=== PATIENT | male | born 1975 | race Caucasian/White ===

== ENCOUNTER 2017-01-30 12:00 | Emergency (ER) | payer MEDICARE ==
[~2017-01-30] VITALS: Ht 180.3 cm; Wt 81.8 kg
[2017-01-30 12:12] VITALS: BP 147/100; PULSE 101; RESP 16; O2SAT 95
--- NOTE | 2017-01-30 13:33 | ED.REPORT ---
HPI-Psychiatric Illness Date of Service Jan 30, 2017 ED Provider: Courtney Dakota Patient is a 41 year old male who presents to the ED from [place] complaining of hopelessness due to being homeless and not being able to find a place to live. He denies suicidal ideation but reports that he went to the doctor and asked to be "put down". Patient reports auditory hallucinations that told him that if he went to a particular building, they would clear drunk driving charges and visual hallucinations in the form of cartoon characters. He denies homicidal ideation or any other symptoms at this time. He reports using alcohol and smoking. He last drank 3 days ago. Patient also reports doing Crystal one month ago. Patient has a nurse practitioner that prescribes him Zyprexa. Nursing Notes Stated Complaint: PSYCH EVAL Chief Complaint: General Complaint Nursing Notes Reviewed: Yes Allergies: Coded Allergies: Penicillins (Verified Allergy, Intermediate, 01/30/17) General Time Seen by MD: 13:32 Chief Complaint Other (Hopelessness ) Hx Obtained From: Patient Arrived By: Walk-in Onset Occurred: Onset unknown Immunizations: Unknown Risk-Psychiatric Illness Suicide Risk Stratification Suicide Risk Factors - Adult: : Alcohol use: Substance abuse RF Statements: Risk factors reviewed Past Medical History Past Medical History bursitis Past Surgical History None reported Smoking History Current Every Day Smoker Social History Alcohol Use: "Social" Drug Use: Meth Other Social History: Homeless Ambulatory Status Independent Review of Systems Review of Systems Note: +hopelessness Constitutional: Denies: Chills, Fever GI: Denies: Abdominal pain, Diarrhea, Vomiting Skin: Denies Rash Psychiatric: Reports: Hallucinations, auditory, Hallucinations, visual, Denies: Homicidal ideation, Suicidal ideation Complete sys rev & neg: except as marked. Physical Exam Initial Vital Signs Vital Signs (First) Date Time Temp Pulse Resp B/P Pulse Ox O2 Delivery O2 Flow Rate FiO2 01/30/17 12:12 36.4 101 16 147/100 95 Room Air Initial VS: Reviewed, Vital signs abnormal Head / Eyes: Atraumatic, Normocephalic Neck: Full range of motion Respiratory: No respiratory distress Cardiovascular: Regular rate & rhythm, Heart sounds normal, Intact distal pulses Abdomen / GI: Soft, Non-tender Skin: Warm, Dry General/Constitutional: Awake, Alert, No acute distress Neurologic: Oriented X3, Speech NL Psychiatric: Not suicidal, Not homicidal Abnormal Thinking / Perception: Positive: Hallucinations, auditory, Hallucinations, visual Odd affect Re-Eval/Medical Decision Med Decision/Clinical Course Patient has a very odd affect and poor insight and judgment however after discussion with the patient, he does not seem to be at imminent risk of harm to himself or others. He is generally tangential than disorganized. Discuss with social work, a transitional home is found for the patient and he will be sent directly there. Turn and follow-up precautions given Re-Evaluation/Progress : Time of Eval: 14:36 )( Re-Eval Psychiatric: No danger to others Re-Evaluation/Progress Note: Discussed plan for discharge. Patient understands and agrees with plan. All questions addressed at this time. Consultation #1: Consulted With: curing room worker Call Returned at: 13:44 Bowling Ball Grader: Will see patient Note: Social work will see pt. Consultation #2: Consulted With: curing room worker Call Returned at: 14:23 Bowling Ball Grader: Agrees with eval, Agrees with plan Note: Provided pt with resources. pt is safe to D/C Counseled Regarding: Diagnosis, Need for follow-up, When/why to return to ED Discharge & Departure Impression: Primary Impression: Homeless )( Condition at Discharge: No danger to self, No danger to others Disposition: Home Discharge Condition All VS Reviewed: Yes Condition: Stable Additional Instructions: Use the resources provided by the social human services assistants and go directly to the prison. The emergency department is always available for any physical or psychiatric emergencies. Referrals: [facility] (PCP) Corey Attestation Portions of this note were transcribed by Dayan Jacobs. I, Dr. Valdez personally performed the history, physical exam and medical decision-making; I reviewed and confirmed the accuracy of the information in the transcribed note. Signed: Corey Galvin, 01/30/17 [place] Valdez DO Jan 30, 2017 13:33 DAYAN JACOBS Jan 30, 2017 14:29
[2017-01-30 15:15] VITALS: BP 126/86; PULSE 81; RESP 16; O2SAT 99
[2017-01-30 15:48] VITALS: BP 126/86; PULSE 81; RESP 16; O2SAT 99
== END 2017-01-30 15:49 | disposition home or self-care (01) ==
LOC: SED 12:00
DX: R44.0 Auditory hallucinations (principal); R44.1 Visual hallucinations; F33.9 Major depressive disorder, recurrent, unspecified; F15.10 Other stimulant abuse, uncomplicated; Z59.0 Homelessness; Z88.0 Allergy status to penicillin